=== PATIENT | female | born 2000 | race Caucasian/White ===

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

== ENCOUNTER → 2018-01-15 | Emergency (ER) | payer MEDICAID ==
[~2018-01-15] VITALS: Ht 162.6 cm; Wt 77.3 kg
[2018-01-15 22:45] VITALS: BP 144/83
== END | disposition home or self-care (01) ==
LOC: EMS 22:35
DX: K08.89 Other specified disorders of teeth and supporting structures (principal); Z53.21 Procedure and treatment not carried out due to patient leaving prior to being seen by health care provider

== ENCOUNTER 2018-02-21 02:14 | Emergency (ER) | payer MEDICAID, OTHER ==
[~2018-02-21] VITALS: Ht 162.6 cm; Wt 79.5 kg
[2018-02-21] MEDS ORDERED: BUPIVACAINE HCL/PF 0.25% 10 ML VIAL INJ ONE (03:00)
[2018-02-21 03:30] VITALS: BP 120/74
== END 2018-02-21 03:31 | disposition home or self-care (01) ==
LOC: EMS 02:15
DX: K02.9 Dental caries, unspecified (principal); F17.210 Nicotine dependence, cigarettes, uncomplicated; Z88.0 Allergy status to penicillin
CPT/HCPCS: 64400; 99284; J3490